=== PATIENT | female | born 1975 ===

== ENCOUNTER 2018-06-24 22:04 | Emergency (ER) | payer BC ==
[2018-06-24 22:23] VITALS: RESP 20
--- NOTE | 2018-06-24 23:24 | C.PDOC ---
History Of Present Illness 42 year old female presents to the ER with a complaint of worsening RLQ pain for the past week. Patient has had intermittent similar episodes in the past that would rarely only occur when getting out of bed in the morning, the pain was sharp and would last several seconds then resolve on its own. Over the past week she reports the pain has been more frequent and intense, now having pain with any change in position, worse when climbing stairs and sitting up, resolves when at rest. Denies Hx of surgeries or swelling to the area. <Ana Velásquez - Last Filed: 06/25/18 00:42> History Per: Patient History/Exam Limitations: no limitations Onset/Duration Of Symptoms: Days, Intermittent Episodes Current Symptoms Are (Timing): Worse Location Of Pain/Discomfort: RLQ Radiation Of Pain To:: None Quality Of Discomfort: Sharp Associated Symptoms: denies: Fever, Chills, Nausea, Vomiting, Diarrhea Exacerbating Factors: Other (When sitting up, climbing up stairs) Alleviating Factors: Rest Recent travel outside of the [place]: No Abnormal Vaginal Bleeding: No <Ana Velásquez - Last Filed: 06/25/18 00:42> <Jim Aleman - Last Filed: 06/25/18 03:02> Time Seen by Provider: 06/24/18 22:53 Chief Complaint (Nursing): Abdominal Pain Past Medical History Reviewed: Historical Data, Nursing Documentation, Vital Signs Vital Signs: Last Vital Signs Temp 98 F 06/24/18 22:20 Pulse 99 H 06/24/18 22:20 Resp 20 06/24/18 22:20 BP 109/78 06/24/18 22:20 Pulse Ox 98 06/24/18 22:20 Family History: States: Unknown Family Hx - Social History Hx Alcohol Use: Yes Hx Substance Use: No - Immunization History Hx Tetanus Toxoid Vaccination: No Hx Influenza Vaccination: No Hx Pneumococcal Vaccination: No <Ana Velásquez - Last Filed: 06/25/18 00:42> Vital Signs: Last Vital Signs Temp 98.5 F 06/25/18 02:43 Pulse 78 06/25/18 02:43 Resp 20 06/25/18 02:43 BP 100/62 06/25/18 02:43 Pulse Ox 99 06/25/18 02:43 <Jim Aleman - Last Filed: 06/25/18 03:02> Review Of Systems Except As Marked, All Systems Reviewed And Found Negative. Constitutional: Negative for: Fever, Chills Gastrointestinal: Positive for: Abdominal Pain. Negative for: Nausea, Vomiting, Diarrhea Genitourinary: Negative for: Dysuria, Hematuria <Ana Velásquez - Last Filed: 06/25/18 00:42> Physical Exam - Physical Exam Appears: Non-toxic Skin: Normal Color, Warm, Dry Head: Atraumatic, Normacephalic Eye(s): bilateral: Normal Inspection Oral Mucosa: Moist Neck: Normal, Supple Chest: Symmetrical, No Tenderness Cardiovascular: Rhythm Regular Respiratory: Normal Breath Sounds, No Rales, No Rhonchi, No Wheezing Gastrointestinal/Abdominal: Soft, Tenderness (Reproducible when attempts to sit up), No Guarding, No Rebound Back: No CVA Tenderness Neurological/Psych: Oriented x3, Normal Speech <Ana Velásquez Last Filed: 06/25/18 00:42> ED Course And Treatment - Laboratory Results Result Diagrams: 06/24/18 23:40 06/24/18 23:40 Urine POC: Negative O2 Sat by Pulse Oximetry: 98 (Room air) Pulse Ox Interpretation: Normal <DidierAna Presley Last Filed: 06/25/18 00:42> - Laboratory Results Result Diagrams: 06/24/18 23:40 06/24/18 23:40 <Jim Aleman - Last Filed: 06/25/18 03:02> Medical Decision Making Medical Decision Making: Plan: * CT abd/pel * Blood work * Urinalysis * Toradol <DidierAna - Last Filed: 06/25/18 00:42> Disposition Counseled Patient/Family Regarding: Studies Performed, Diagnosis - Disposition Disposition Time: 01:00 <DidierAna Presley Last Filed: 06/25/18 00:42> Counseled Patient/Family Regarding: Studies Performed, Diagnosis, Smoking Cessation - Disposition Disposition Time: 03:00 - POA Present On Arrival: None <Jim Aleman - Last Filed: 06/25/18 03:02> - Disposition Referrals: [facility] [Outside] Disposition: HOME/ ROUTINE Condition: STABLE Instructions: Urinary Tract Infections in Adults, Acute Abdomen (Belly Pain), Adult (DC), Inflammatory Bowel Disease (DC), Gallstones Forms: [facility] (Thai) - Clinical Impression Clinical Impression: Abdominal pain, Enteritis, UTI (urinary tract infection), Gall bladder stones - Scribe Statement The provider has reviewed the documentation as recorded by the Scribe [place] All medical record entries made by the Scribe were at my direction and personally dictated by me. I have reviewed the chart and agree that the record accurately reflects my personal performance of the history, physical exam, medical decision making, and the department course for this patient. I have also personally directed, reviewed, and agree with the discharge instructions and d isposition. <Ana Velásquez - Last Filed: 06/25/18 00:42> Physician Patient Turnover Patient Signed Over To: Jim Aleman Handoff Comments: CHRISTIANE STONE, EVERO <Ana Velásquez - Last Filed: 06/25/18 00:42>
[2018-06-24 23:43] LABS: BASO # 0.1 K/uL (0.0-0.2); BASO % 0.6 % (0.0-2.0); EOS # 0.3 K/uL (0.0-0.7); EOS % 3.1 % (0.0-4.0); HEMOGLOBIN 12.7 g/dL (11.0-16.0); LYMPH # 3.2 K/uL (1.0-4.3); LYMPH % 33.2 % (20.0-40.0); MEAN CELL VOLUME 90.8 fL (81.0-99.0); MEAN CORPUSCULAR HEMOGLOBIN 31.8 pg (27.0-31.0); MEAN PLATELET VOLUME 6.7 fL (7.2-11.7); MONO # 0.8 K/uL (0.0-0.8); MONO % 7.8 % (0.0-10.0); NEUT # 5.3 K/uL (1.8-7.0); NEUT % 55.3 % (50.0-75.0); RBC 3.98 Mil/uL (3.80-5.20); RED CELL DISTRIBUTION WIDTH 13.3 % (11.5-14.5); WHITE BLOOD COUNT 9.6 K/uL (4.8-10.8)
[2018-06-24 23:47] LABS: SQUAMOUS EPITHIAL 9 /hpf (0-5); URINE BACTERIA OCC (<OCC); URINE BILIRUBIN NEGATIVE (NEGATIVE); URINE BLOOD NEGATIVE (NEGATIVE); URINE CLARITY Hazy (Clear); URINE COLOR Yellow (YELLOW); URINE GLUCOSE (UA) NORMAL (Normal); URINE LEUKOCYTE ESTERASE 2+ Leu/uL (Negative); URINE PROTEIN NEGATIVE (NEGATIVE); URINE UROBILINOGEN NORMAL mg/dL (0.2-1.0)
[2018-06-24 23:56] LABS: ALB/GLOB RATIO 1.3 (1.0-2.1); ALBUMIN 4.2 g/dL (3.5-5.0); ALT/SGPT 128 U/L (9-52); AST/SGOT 60 U/L (14-36); BLOOD UREA NITROGEN 12 mg/dL (7-17); CALCIUM 9.2 mg/dl (8.6-10.4); GFR NON-AFRICAN AMERICAN > 60; LIPASE 53 U/L (23-300)
[2018-06-25] MEDS ORDERED: Iodixanol 320 MG/ML 100 ML BOTTLE IV ONE (01:00)
[2018-06-25 02:45] VITALS: BP 100/62; PULSE 78; TEMP 98.5; O2SAT 99
--- NOTE | 2018-06-25 10:24 | CT ---
Date of service: 06/25/2018 PROCEDURE: CT Abdomen and Pelvis with contrast HISTORY: abd pain rlq COMPARISON: None available TECHNIQUE: Contrast dose: 100 mL Visipaque 320 Radiation dose: Total exam DLP = 905.19 mGy-cm. This CT exam was performed using one or more of the following dose reduction techniques: Automated exposure control, adjustment of the mA and/or kV according to patient size, and/or use of iterative reconstruction technique. FINDINGS: LOWER THORAX: No visible consolidation, pleural effusion, or pneumothorax. Small hiatal hernia/distal esophageal wall thickening. LIVER: Too small to characterize 5 mm right hepatic lobe hypodensity; statistically likely cyst or hemangioma. GALLBLADDER AND BILE DUCTS: Large gallstone within the gallbladder. PANCREAS: Unremarkable. SPLEEN: Unremarkable. ADRENALS: Unremarkable. KIDNEYS AND URETERS: The kidneys enhance symmetrically. No hydronephrosis or obstructing calculus identified. VASCULATURE: No aortic aneurysm. No atherosclerotic calcification or mural plaque present. BOWEL: Stomach is nondistended. Lack of oral contrast limits evaluation for bowel pathology. Bowel loops appear within normal limits of caliber without evidence of obstruction. Nonspecific mild thickening of few small bowel loops. APPENDIX: The appendix appears within normal limits of caliber. No secondary signs of acute appendicitis. PERITONEUM: No significant free fluid. No definite free air. LYMPH NODES: No bulky adenopathy identified. BLADDER: Unremarkable. REPRODUCTIVE: Fibroid uterus. BONES: No acute osseous abnormality is detected. OTHER FINDINGS: None. IMPRESSION: Large gallstone within the gallbladder. Too small to characterize 5 mm right hepatic lobe hypodensity; statistically likely cyst or hemangioma. Heterogeneous appearance of the uterus appears consistent with fibroids. Ultrasound may be considered for further evaluation if indicated. Preliminary impression was provided by [facility].
== END 2018-06-25 03:24 | disposition home or self-care (01) ==
LOC: C.ER 22:04
DX: K52.9 Noninfective gastroenteritis and colitis, unspecified (principal); N39.0 Urinary tract infection, site not specified; K80.20 Calculus of gallbladder without cholecystitis without obstruction; R10.31 Right lower quadrant pain
CPT/HCPCS: 74177; 80053; 81001; 83690; 85025; 87086; 96374; 99285; J1885; Q9967